=== PATIENT | female | born 1945 | race Caucasian/White ===

== ENCOUNTER 2016-12-07 13:01 | Outpatient (CLI) | payer MEDICARE ==
[~2016-12-07] VITALS: Ht 167.6 cm; Wt 59.5 kg
[2016-12-07 13:03] VITALS: BP 111/55; PULSE 66; RESP 18; Ht 167.6 cm; Wt 59.5 kg
--- NOTE | 2016-12-07 16:20 | CONS ---
[facility] INITIAL OUTPATIENT CONSULTATION NOTE DATE OF CONSULTATION: 12/07/2016 PLACE OF SERVICE: [facility] ASSESSMENT AND PLAN: A very pleasant and fairly healthy 71-year-old lady with a 2 cm lipoma on the superficial aspect of the left back caudal to the scapular bone that can easily be resected surgically under local sedation with intravenous sedation versus general anesthesia. I explained the option of not doing surgery and despite my recommendations, the patient is enough affected by the presence of the lipoma that she would like to have it removed. We reviewed the operation in detail as well as the risks, benefits and alternatives, and the patient appears to understand and wishes to proceed. All questions answered. With above assessment, I recommend the followin. Preoperative history and physical one week prior to scheduled operation. 2. Please schedule the patient for an outpatient removal of a lipoma from her back. Thank you again for allowing us to participate in the care of this very pleasant lady and her wonderful family. If there are any questions, please feel free to call me at [phone]. TOTAL VISIT TIME: 45 minutes of which more than half was spent in [id number] discussion with the patient as well as coordination of care between multiple physicians and providers. HISTORY OF PRESENT ILLNESS: The patient is a very pleasant, otherwise fairly healthy 71-year-old lady without significant comorbidities who has noted a lump in her back approximately for about a year, which on ultrasound shows to be a 4.6 cm subcutaneous lipoma. This was on 06/23/2016. The patient's main complaint is cosmetic and the reason for the request for surgical evaluation was due to adequate changes in lifestyle. The patient is fearful of wearing dresses with an open back and this has started to impact her quality of life. She has not had any cancers in the past and there are no other mitigating factors around this lesion itself. Otherwise, she is healthy and does not take any medications and no other prior known surgical history. PAST SURGICAL HISTORY: None. PAST SURGICAL HISTORY: None. ALLERGIES: ASPIRIN. MEDICATIONS AT HOME: None. SOCIAL HISTORY: The patient does not report any significant smoking or drinking and no intravenous drug use. FAMILY HISTORY: The patient's brother was diagnosed with colon cancer and I operated on him approximately a year and a half ago. No other known significant cancers in the family. REVIEW OF SYSTEMS: Other than the above-mentioned, there are no other pertinent positives or pertinent negatives in a complete 14-point review of systems. PHYSICAL EXAMINATION: GENERAL: The patient appears to be a very pleasant lady of /[place] descent, sitting in a chair comfortably and in no acute distress. Her BMI is 21.2. She is afebrile. Her vital signs are stable. VITAL SIGNS: see below HEENT: Normocephalic and atraumatic. Extraocular muscles and hearing are grossly intact bilaterally and symmetrically. Sclerae are nonicteric. Oral cavity is clear; oral mucosa appeared to be pink and moist. Dentition: fair. NECK: Supple. There is no lymphadenopathy or JVD. There is no submental, submandibular or supraclavicular lymphadenopathy. CHEST: Rises symmetrically with each breath; patient is breathing comfortably. There are no audible wheezes, rales or rhonchi on the gross exam. HEART: HPulse is regular and palpable on the *right wrist. Capillary refill was normal. Carotid pulses are palpable bilaterally and symmetrically in the neck. EXTREMITIES: Lower extremities contain no pitting edema around the ankles bilaterally and symmetrically. ABDOMEN: Abdomen is soft, nontender and nondistended. There are no peritoneal signs or guarding. No evidence of ascites, organomegaly, caput medusae, engorged subcutaneous veins, or other abnormalities. BACK: Shows a 2 to 3 cm area over the caudal pole of left scapula of the region of softness where mass can be palpated. Nontender. The skin around it is normal and pink and no other symptoms in that region.SKIN: Appears to be pink and feels warm to touch. NEUROLOGIC: Awake, alert, and follows commands appropriately. LABORATORY VALUES: Dated 06/08/2016 shows normal electrolytes. Bilirubin 0.4. Alkaline phosphatase 53. Lipid panel was normal. Platelet count 165. IMAGING: Above-mentioned ultrasound was reviewed. Dictated By: SANJEEV WEISS/LAMBERTO Conf#: [id number] DID#: [id number] CC: Teresita Richmond DO; MPH;*EndCC* [facility]
== END 2016-12-07 16:52 | disposition home or self-care (01) ==
LOC: HPC 13:01
PROVIDERS: ATTEND Transplant Surgery
DX: D17.1 Benign lipomatous neoplasm of skin and subcutaneous tissue of trunk (principal); Z80.0 Family history of malignant neoplasm of digestive organs
CPT/HCPCS: G0463

== ENCOUNTER 2016-12-20 08:15 | Day surgery (SDC) | payer MEDICARE ==
[2016-12-19 10:33] VITALS: BMI 21.0
[2016-12-20] VITALS (19 sets, daily range): BP systolic 110–141; BP diastolic 45–67; PULSE 62–82; RESP 16–19; Ht 165.1 cm; Wt 60.0 kg
[~2016-12-20] VITALS: Ht 165.1 cm; Wt 60.0 kg
[2016-12-20] MEDS ORDERED: ESTR1TAB23 PO (08:45)
[2016-12-20] MEDS ORDERED: MEDR2.5T21 PO (08:46)
[2016-12-20] MEDS ORDERED: SIMV10TA PO (08:47)
[2016-12-20] MEDS ORDERED: LORA1TAB PO (08:47)
[2016-12-20] MEDS ORDERED: METF-382 PO (08:48)
[2016-12-20] MEDS ORDERED: CYCL1DRO BOTH EYES (08:48)
[2016-12-20] MEDS ORDERED: D5W-0.45 NACL + KCL 20 MEQ 1,000 ML IV SCH (09:00)
[2016-12-20] MEDS ORDERED: CEFAZOLIN 2 GM/50 ML (PMX) 50 ML IVPB SCH (09:00)
[2016-12-20] MEDS ORDERED: BUPIVACAINE 0.25%/EPI (SDV) 30 ML INJ ONE (09:15)
--- NOTE | 2016-12-20 10:00 | HPN ---
Date/Time of Note Date/Time of Note DATE: 12/20/16 TIME: 09:59 Interval H&P Admission Note Pt. seen H&P reviewed: No system changes Pt. seen H&P reviewed. No system changes (I attest that I have seen and examined the patient and reviewed the operation in detail, as well as its risks , benefits and alternatives of the operation). I attest that I have seen and examined the patient and reviewed in detail the operation, and its associated risks, benefits and alternative. I have answered all the patient's questions to the best of my ability and the patient wishes to proceed. Please refer to rest of electronic medical record for additional updates. SANJEEV TORREZ M.D. Dec 20, 2016 09:59
[2016-12-20] MEDS ORDERED: PROPOFOL 20 ML ONE (10:05)
[2016-12-20] MEDS ORDERED: MIDAZOLAM 1 MG/ML 2 ML INJ ONE (10:06)
[2016-12-20] MEDS ORDERED: PHENYLephrine (100 MCG/ML) 5ML SYG ONE (10:06)
[2016-12-20] MEDS ORDERED: CEFAZOLIN 1 GM INJ ONE (10:28)
[2016-12-20] MEDS ORDERED: ONDANSETRON 4 MG INJ IV PRN (10:30)
[2016-12-20] MEDS ORDERED: HYDROmorphONE (0.2 MG/ML) 10ML SYG IV PRN (10:30)
[2016-12-20] MEDS ORDERED: MEPERIDINE 25 MG INJ IV PRN (10:30)
[2016-12-20] MEDS ORDERED: ONDANSETRON 4 MG INJ ONE (10:32)
[2016-12-20] MEDS ORDERED: FAMOTIDINE 20 MG INJ ONE (10:32)
--- NOTE | 2016-12-20 11:44 | OPR ---
Date/Time of Note Date/Time of Note DATE: 12/20/16 TIME: 11:36 Operative Report Operative Findings [facility] INPATIENT OPERATIVE NOTE PLACE OF SERVICE: [facility] DATE OF SURGERY: 12/20/2016 PREOPERATIVE DIAGNOSIS: 1. Left upper back mass, likely lipoma POSTOPERATIVE DIAGNOSIS: 1. Left upper back mass, likely lipoma OPERATION: 1. Excision of left upper back mass (6x4x1.3 cm) with ultrasound guidance SURGEON: Sanjeev Torrez M.D. LAST TRIMMER: None ANESTHESIA: General endotracheal tube anesthesia ANESTHESIOLOGIST: Maxx Breaux M.D. BRIEF SUMMARY: An otherwise uncomplicated excision of left upper back mass was performed with ultrasound guidance with findings of likely lipoma. BRIEF HISTORY: The patient is a very pleasant and fairly healthy 71-year-old lady with a 2 cm lipoma on the superficial aspect of the left back caudal to the scapular bone that can easily be resected surgically under local sedation with intravenous sedation versus general anesthesia. I explained the option of not doing surgery and despite my recommendations, the patient is enough affected by the presence of the lipoma that she would like to have it removed. We reviewed the operation in detail as well as the risks, benefits and alternatives, and the patient appears to understand and wishes to proceed. All questions answered. For a detailed report of my consultation with patient[ and family], please refer to my separate consultation note. STATEMENT OF THE INFORMED CONSENT: The patient (no family present during any of my discussions with the patient) appeared to understand the risks of the operation to include, but not be limited to risk of postoperative pain and scar tissue, possible infection or bleeding requiring other interventions such as opening the wound, placement of drainage catheters, or other operative interventions; possible injury to surrounding to structures including bowel, bladder, bile duct, or blood vessels, or solid organs such as liver, kidney, or pancreas requiring other interventions or procedures; possible leakage of bowel from anastomotic sites or suture lines causing significant increase in morbidity and mortality and requiring multiple interventions including but not limited to, placement of drainage catheters, imaging studies, as well as operative interventions; possible other source of sepsis such as urinary tract infections or pneumonias, or other sources of potentially life threatening problems such as deep venous thrombus formation causing pulmonary embolism, myocardial arrhythmias and infarctions, and even . After careful consideration of all their options, the patient and family appeared to understand and wished to proceed with surgery. DESCRIPTION OF PROCEDURE: After obtaining informed consent, the patient was brought into the operating room and was placed in a normal supine position, where successful general endotracheal tube anesthesia was performed. Intravenous access was already in place and intravenous antimicrobials had been appropriately chosen and dosed prior to the operation. The patient's left upper back skin was prepped and draped in the usual sterile fashion. We then called a surgical time-out where the patient's identification, date of , nature of the operation, allergies, presence of intravenous antimicrobials, presence of needed equipment, and any other concerns were reviewed and agreed upon by all members of the operating room team. We then started the operation by marking the borders of the mass with the help of an ultrasound. I then injected the incision site with 1/4% Marcaine with epinephrine and made a skin incision with a scalpel. Subcutaneous fat was dissected with cautery until the mass was encountered. This appeared to be a lipoma without concerning features. I dissected around the mass mostly with blunt dissection and was able to remove it without difficulty. Size was 6x4x1.3 cm. Borders marked with short:superior/cephalad; long:lateral; double:deep and specimen sent to pathology for permanent sections. Wound was then irrigated with copious amounts of normal saline, subcutaneous fat was reapproximated with 3 interrupted 3-0 Vicryl sutures, and skin was reapproximated with running 4-0 Monocryl suture. Light dressing was then applied. At the end of the operation, both the sponge count and needle count were reportedly correct x2. The patient tolerated the procedure without any reported complications. ESTIMATED BLOOD LOSS: 5 mL BLOOD OR BLOOD PRODUCT TRANSFUSIONS: None to my knowledge. SPECIMENS: L upper back mass COMPLICATIONS: None. DISPOSITION: Recovery area. Disclaimer: Inadvertent spelling and grammatical errors are likely due to EHR/ dictation software use and do not reflect on the quality of delivered patient care. Also, please note that the electronic time recorded on this node does not necessarily reflect the actual time of the visit. SANJEEV TORREZ M.D. Dec 20, 2016 11:44
[2016-12-20] MEDS ORDERED: BISACODYL 10 MG SUPP PR PRN (12:00)
[2016-12-20] MEDS ORDERED: DOCUSATE SODIUM 100 MG CAP PO PRN (12:00)
[2016-12-20] MEDS ORDERED: HYDROCODONE/APAP (5/325) TAB PO PRN ×2 (16:00)
== END 2016-12-20 13:45 | disposition home or self-care (01) ==
LOC: SDS 08:15
PROVIDERS: ATTEND Transplant Surgery
DX: D17.1 Benign lipomatous neoplasm of skin and subcutaneous tissue of trunk (principal); E11.9 Type 2 diabetes mellitus without complications; E78.5 Hyperlipidemia, unspecified
CPT/HCPCS: 11406; 82962; J0690; J2250; J3010; J2370; J2405

== ENCOUNTER 2017-01-04 13:04 | Outpatient (CLI) | payer MEDICARE ==
[~2017-01-04] VITALS: Ht 165.1 cm; Wt 60.7 kg
[~2017-01-04 13:04] MED LIST: CYCL1DRO BOTH EYES; ESTR1TAB23 PO; LORA1TAB PO; MEDR2.5T21 PO; METF-382 PO; SIMV10TA PO
--- NOTE | 2017-01-04 13:13 | PN ---
Date/Time of Note Date/Time of Note DATE: 01/04/17 TIME: 13:09 Assessment/Plan Assessment/Plan Assessment/Plan [facility] Progress Note Date of Service: 01/04/17 Today's Impression & Plan: Overall doing well post op without major issues. No major wound problems. With above assessment, I've recommended the following for today: 1. F/u with PCP 2. F/u with us prn Thank you again for your great care of this very pleasant patient and wonderful family. If there are any questions, please feel free to call me at [phone]. TOTAL VISIT TIME: 20 minutes of which more than half was spent in [id number] discussion with the patient, possibly including family, as well as coordination of care between multiple physicians and providers. Disclaimer: Inadvertent spelling or grammatical errors are likely due to EHR/ dictation software use and do not reflect on the overall quality of patient care. Updated Clinical Summary: The patient is a very pleasant and fairly healthy 71-year-old lady with a 2 cm lipoma on the superficial aspect of the left back caudal to the scapular bone that can easily be resected surgically under local sedation with intravenous sedation versus general anesthesia. I explained the option of not doing surgery and despite my recommendations, the patient is enough affected by the presence of the lipoma that she would like to have it removed. We reviewed the operation in detail as well as the risks, benefits and alternatives, and the patient appears to understand and wishes to proceed. S/p excision of left upper back mass (6x4x1.3 cm) with ultrasound guidance 12/20/16 with final pathology c/w benign lipoma. Comorbidities: 1. Left upper back mass, likely lipoma. S/p excision of left upper back mass ( 6x4x1.3 cm) with ultrasound guidance 12/20/16 with final pathology c/w benign lipoma. Subjective: No major events or complaints since the operation; no major wound pain or other complaints; no n/v/d; no sob or cp; + flatus; + BM and normal; + activity Objective: Vitals: See below Exam: GENERAL: On exam, the patient was sitting in a chair and appeared to be comfortable and in no acute distress. BACK: Incision is clean, dry and intact without any evidence of erythema, edema , or discharge. SKIN: Skin appears to be pink and feels warm to touch. NEUROLOGIC: Patient is awake, alert, and follows commands appropriately. Exam/Review of Systems Vital Signs Vitals Vital Signs Date Time Temp Pulse Resp B/P Pulse Ox O2 Delivery O2 Flow Rate FiO2 01/04/17 13:17 98.1 68 18 121/59 96 Room Air SANJEEV TORREZ M.D. Jan 04, 2017 13:13
[2017-01-04 13:17] VITALS: BP 121/59; PULSE 68; RESP 18; Ht 165.1 cm; Wt 60.7 kg
== END 2017-01-04 16:53 | disposition home or self-care (01) ==
LOC: HPC 13:04
PROVIDERS: ATTEND Transplant Surgery
DX: D17.1 Benign lipomatous neoplasm of skin and subcutaneous tissue of trunk (principal)
CPT/HCPCS: G0463